=== PATIENT | male | born 1945 | race African-American/Black ===

== ENCOUNTER → 2016-12-23 | Outpatient (CLI) | payer MEDICARE, OTHER ==
[~2016-12-23] MED LIST: ASPIRIN 32325 MG/TAB PO; BACTRIM DS 8001 TAB PO; COZAAR 50MG50 MG/TAB PO; CRESTOR40 MG PO; FARXIGA10 PO; FISH OIL1000 MG PO; GARLIC SUPPLEM300 MG PO; GLUCOPHAGE1000 MG PO; HYDRODIURIL50 MG PO; LOPRESSOR100 MG PO; LYRICA 50MG CAP50 MG PO; MULTIPLE VITAMI1 CAP PO; NATURAL E400 IU PO; NORVASC 10MG10 MG PO; PLAVIX 75MG TAB75 MG PO; PREDNISONE20 MG PO; SYNTHROID 0.10.15 MG PO; VIAGRA100 MG PO; VICTOZA6 MG/ML SC; XARELTO15 MG PO; ZESTRIL40 MG PO; ZYLOPRIM 300MG300 MG PO
== END ==
LOC: COL.RAD 07:14
DX: K80.20 Calculus of gallbladder without cholecystitis without obstruction (principal); M43.16 Spondylolisthesis, lumbar region; I70.0 Atherosclerosis of aorta

== ENCOUNTER 2017-04-29 10:03 | Emergency (ER) | payer MEDICARE, OTHER ==
[~2017-04-29] VITALS: Ht 175.3 cm; Wt 80.9 kg
[2017-04-29 10:10] VITALS: TEMP 97.7
[2017-04-29 10:39] LABS: BASO # 0.1 (0.0-0.2); BASO % 0.7 % (0.0-2.0); EOS # 0.2 (0.0-0.7); EOS % 3.2 % (0-4.0); GRAN # 4.7 (1.4-6.5); GRAN % 69.4 % (42.2-75.2); HEMATOCRIT 37.4 % (42.0-52.0); HEMOGLOBIN 12.4 g/dl (13.5-18.0); LYMPH # 1.5 (1.2-3.4); LYMPH % 21.5 % (20.0-51.0); MEAN CELL VOLUME 96 fl (80.0-100.0); MEAN CORPUSCULAR HEMOGLOBIN 32 pg (27.0-31.0); MEAN CORPUSCULAR HGB CONC 33 g/dl (33.0-37.0); MEAN PLATELET VOLUME 10.8 fl (7.4-10.4); MONO # 0.3 (0.1-0.6); MONO % 4.9 % (1.7-9.3); PLATELET COUNT 198 K/mm3 (130-400); RED BLOOD COUNT 3.89 M/mm3 (4.20-5.60); REDCELL DISTRIBUTION WIDTH-CV 15.2 % (11.5-14.5)
[2017-04-29 10:44] LABS: PROTHROMBIN TIME 11.9 SECONDS (9.7-12.8)
[2017-04-29 10:48] LABS: ALBUMIN 4.1 gm/dL (3.5-5.0); BILIRUBIN,TOTAL 0.9 mg/dL (0.0-1.0); CALCIUM 9.7 mg/dL (8.4-10.2); CREATININE, serum 1.45 mg/dL (0.66-1.25); POTASSIUM 3.9 mmol/L (3.4-5.0); TOTAL PROTEIN 7.7 gm/dL (6.4-8.2)
[2017-04-29 11:00] LABS: TROPONIN-I 0.025 ng/mL (0.000-0.034)
[2017-04-29] MEDS ORDERED: ZYLOPRIM 300MG300 MG PO (11:59)
[2017-04-29] MEDS ORDERED: NORVASC 10MG10 MG PO (11:59)
[2017-04-29] MEDS ORDERED: ASPIRIN 81M81 MG/TA2 PO (12:00)
[2017-04-29] MEDS ORDERED: SYNTHROID 0.10.15 MG PO (12:01)
[2017-04-29] MEDS ORDERED: HYDRODIURIL50 MG PO (12:01)
[2017-04-29] MEDS ORDERED: GLUCOPHAGE XR500 M1 PO (12:02)
[2017-04-29] MEDS ORDERED: LOPRESSOR100 MG PO (12:03)
[2017-04-29] MEDS ORDERED: NATURAL E400 IU PO (12:04)
[2017-04-29] MEDS ORDERED: VIAGRA100 M1 (12:04)
[2017-04-29] MEDS ORDERED: LIPITOR 80MG80 MG PO (12:05)
[2017-04-29] MEDS ORDERED: VICTOZA6 MG/ML SQ (12:07)
[2017-04-29] MEDS ORDERED: OMEGA-3 1000 MG1 CAP PO (12:07)
[2017-04-29] MEDS ORDERED: MULTIPLE VITAMI1 TA5 PO (12:08)
[2017-04-29] MEDS ORDERED: BYDUREON P2 MG/0.65 (12:09)
[2017-04-29 15:54] VITALS: BP 142/94; PULSE 90
== END 2017-04-29 16:23 | disposition short-term general hospital (02) ==
LOC: COL.ER 10:03
PROVIDERS: Emergency Medicine
DX: I50.9 Heart failure, unspecified (principal); E11.9 Type 2 diabetes mellitus without complications; I10 Essential (primary) hypertension; I25.10 Atherosclerotic heart disease of native coronary artery without angina pectoris; Z95.1 Presence of aortocoronary bypass graft; E03.9 Hypothyroidism, unspecified; Z79.82 Long term (current) use of aspirin; Z79.84 Long term (current) use of oral hypoglycemic drugs
CPT/HCPCS: J1644; J1940

== ENCOUNTER → 2017-08-02 | Outpatient (CLI) | payer MEDICARE, OTHER ==
[~2017-08-02] MED LIST changes: +APRESOLINE 25MG25 MG PO; +ASPIRIN 81M81 MG/TA2 PO; +BYDUREON P2 MG/0.65; +GARLIC100 MG PO; +GLUCOPHAGE XR500 M1 PO; +LANTUS100 U/ML SQ; +LIPITOR 80MG80 MG PO; +MULTIPLE VITAMI1 TA5 PO; +NOVOLOG 100U100 U/M1 SQ; +OMEGA-3 1000 MG1 CAP PO; +TOPROL XL200 MG PO; +VIAGRA100 M1; +VICTOZA6 MG/ML SQ; +ZESTRIL 20MG TA20 MG PO
== END ==
LOC: COL.VAS 08:12
DX: I08.3 Combined rheumatic disorders of mitral, aortic and tricuspid valves (principal); I50.9 Heart failure, unspecified

== ENCOUNTER → 2017-09-30 | Outpatient (CLI) | payer MEDICARE, OTHER ==
[~2017-09-30] MED LIST changes: +COREG 25MG25 MG/TAB PO; +LANOXIN 0.120.125 MG PO; +LASIX 40MG TABL40 MG PO
[2017-09-30 12:18] LABS: ALBUMIN 3.6 gm/dL (3.5-5.0); BILIRUBIN,TOTAL 1.1 mg/dL (0.0-1.0); CALCIUM 9.1 mg/dL (8.4-10.2); CREATININE, serum 1.88 mg/dL (0.66-1.25); POTASSIUM 4.4 mmol/L (3.4-5.0); TOTAL PROTEIN 7.2 gm/dL (6.4-8.2)
== END ==
LOC: COL.LAB 11:40
PROVIDERS: Family Medicine
DX: I50.82 Biventricular heart failure (principal)

== ENCOUNTER → 2017-10-26 | Outpatient (CLI) | payer MEDICARE, OTHER | LOC: COL.RAD 07:59 | DX: J43.9 Emphysema, unspecified (principal); J84.9 Interstitial pulmonary disease, unspecified; Z95.1 Presence of aortocoronary bypass graft; Z95.0 Presence of cardiac pacemaker; Z98.890 Other specified postprocedural states ==

== ENCOUNTER 2018-07-24 19:26 | Emergency (ER) | payer MEDICARE, OTHER ==
[~2018-07-24] VITALS: Ht 175.3 cm; Wt 78.2 kg
[2018-07-24 19:30] VITALS: TEMP 97
[2018-07-24 19:52] LABS: BASO % 0.5 % (0.0-2.0); EOS # 0.2 (0.0-0.7); EOS % 2.9 % (0-4.0); GRAN # 4.7 (1.4-6.5); GRAN % 61.9 % (42.2-75.2); HEMATOCRIT 43.1 % (42.0-52.0); LYMPH # 1.8 (1.2-3.4); LYMPH % 23.5 % (20.0-51.0); MEAN CELL VOLUME 94 fl (80.0-100.0); MEAN CORPUSCULAR HEMOGLOBIN 31 pg (27.0-31.0); MEAN CORPUSCULAR HGB CONC 33 g/dl (33.0-37.0); MEAN PLATELET VOLUME 11.1 fl (7.4-10.4); MONO # 0.8 (0.1-0.6); MONO % 10.9 % (1.7-9.3); PLATELET COUNT 159 K/mm3 (130-400); RED BLOOD COUNT 4.58 M/mm3 (4.20-5.60)
[2018-07-24 20:07] LABS: ALBUMIN 3.9 gm/dL (3.5-5.0); BILIRUBIN,TOTAL 0.8 mg/dL (0.0-1.0); C-REACTIVE PROTEIN 0.7 mg/dL (0.0-0.9); CALCIUM 9.4 mg/dL (8.4-10.2); CREATININE, serum 2.73 (0.66-1.25); POTASSIUM 4.8 mmol/L (3.4-5.0); TOTAL PROTEIN 8.1 gm/dL (6.4-8.2)
[2018-07-24 20:20] LABS: TROPONIN-I 0.049 ng/mL (0.000-0.035)
[2018-07-24 22:46] VITALS: BP 146/91; PULSE 82
== END 2018-07-24 22:46 | disposition home or self-care (01) ==
LOC: COL.ER 19:26
PROVIDERS: Emergency Medicine
DX: Z45.010 Encounter for checking and testing of cardiac pacemaker pulse generator [battery] (principal); N18.9 Chronic kidney disease, unspecified; I25.10 Atherosclerotic heart disease of native coronary artery without angina pectoris; I12.9 Hypertensive chronic kidney disease with stage 1 through stage 4 chronic kidney disease, or unspecified chronic kidney disease; E11.22 Type 2 diabetes mellitus with diabetic chronic kidney disease; Z79.82 Long term (current) use of aspirin; Z79.4 Long term (current) use of insulin

== ENCOUNTER → 2018-08-03 | Outpatient (CLI) | payer MEDICARE, OTHER | LOC: COL.RAD 13:50 | DX: I70.0 Atherosclerosis of aorta (principal); R31.0 Gross hematuria ==

== ENCOUNTER 2018-09-11 05:50 | Observation (INO) | payer MEDICARE, OTHER ==
[~2018-09-11] VITALS: Ht 327.7 cm; Wt 71.4 kg
[2018-09-11] MEDS ORDERED: LANOXIN 0.120.125 MG PO (06:28)
[2018-09-11] MEDS ORDERED: POTASSIUM IODID PO (06:31)
[2018-09-11] MEDS ORDERED: ANORO IH (06:32)
[2018-09-11] MEDS ORDERED: NATURAL E400 IU PO (06:33)
[2018-09-11 06:43] LABS: BASO # 0.1 (0.0-0.2); BASO % 0.9 % (0.0-2.0); EOS # 0.4 (0.0-0.7); EOS % 4.6 % (0-4.0); GRAN # 6.1 (1.4-6.5); GRAN % 72.3 % (42.2-75.2); HEMATOCRIT 41.2 % (42.0-52.0); HEMOGLOBIN 13.3 g/dl (13.5-18.0); LYMPH # 1.3 (1.2-3.4); LYMPH % 14.8 % (20.0-51.0); MEAN CELL VOLUME 97 fl (80.0-100.0); MEAN CORPUSCULAR HEMOGLOBIN 31 pg (27.0-31.0); MEAN CORPUSCULAR HGB CONC 32 g/dl (33.0-37.0); MEAN PLATELET VOLUME 11.2 fl (7.4-10.4); MONO # 0.6 (0.1-0.6); PLATELET COUNT 194 K/mm3 (130-400); RED BLOOD COUNT 4.27 M/mm3 (4.20-5.60)
[2018-09-11 06:45] LABS: INR 1.1 (0.8-3.0)
[2018-09-11 07:18] LABS: TROPONIN-I 0.059 ng/mL (0.000-0.035)
[2018-09-11 07:32] LABS: ALBUMIN 3.4 gm/dL (3.5-5.0); BILIRUBIN,TOTAL 0.6 mg/dL (0.0-1.0); CREATININE, serum 1.87 (0.66-1.25); POTASSIUM 4.8 mmol/L (3.4-5.0); TOTAL PROTEIN 7.4 gm/dL (6.4-8.2)
[2018-09-11 12:13] VITALS: BP 139/65; PULSE 66; TEMP 98.7
[2018-09-11 15:22] VITALS: BP 130/73; PULSE 90; TEMP 97.4
[2018-09-12] VITALS (7 sets, daily range): BP systolic 101–131; BP diastolic 56–69; PULSE 78–91; TEMP 97.6–98.4
[2018-09-12 05:59] LABS: BASO # 0.1 (0.0-0.2); BASO % 0.8 % (0.0-2.0); EOS # 0.4 (0.0-0.7); EOS % 5.8 % (0-4.0); GRAN # 5.2 (1.4-6.5); GRAN % 68.7 % (42.2-75.2); HEMATOCRIT 41.9 % (42.0-52.0); HEMOGLOBIN 13.6 g/dl (13.5-18.0); LYMPH # 1.2 (1.2-3.4); MEAN CELL VOLUME 96 fl (80.0-100.0); MEAN CORPUSCULAR HEMOGLOBIN 31 pg (27.0-31.0); MEAN CORPUSCULAR HGB CONC 33 g/dl (33.0-37.0); MEAN PLATELET VOLUME 10.2 fl (7.4-10.4); MONO # 0.6 (0.1-0.6); MONO % 8.2 % (1.7-9.3); PLATELET COUNT 190 K/mm3 (130-400); RED BLOOD COUNT 4.35 M/mm3 (4.20-5.60); REDCELL DISTRIBUTION WIDTH-CV 16.6 % (11.5-14.5)
[2018-09-12 06:07] LABS: CALCIUM 9.1 mg/dL (8.4-10.2); CHOLESTEROL RISK RATIO 4.3; CREATININE, serum 1.88 (0.66-1.25); MAGNESIUM 1.8 mg/dL (1.6-2.3); POTASSIUM 4.4 mmol/L (3.4-5.0)
[2018-09-12 06:26] LABS: TROPONIN-I 0.056 ng/mL (0.000-0.035)
[2018-09-13] VITALS (10 sets, daily range): BP systolic 92–123; BP diastolic 54–71; PULSE 81–90; TEMP 97.5–98.2
[2018-09-13 06:05] LABS: BASO # 0.1 (0.0-0.2); BASO % 0.9 % (0.0-2.0); EOS # 0.5 (0.0-0.7); EOS % 6.4 % (0-4.0); GRAN # 4.6 (1.4-6.5); GRAN % 65.3 % (42.2-75.2); HEMATOCRIT 42.3 % (42.0-52.0); LYMPH # 1.1 (1.2-3.4); LYMPH % 15.5 % (20.0-51.0); MEAN CELL VOLUME 94 fl (80.0-100.0); MEAN CORPUSCULAR HEMOGLOBIN 31 pg (27.0-31.0); MEAN CORPUSCULAR HGB CONC 33 g/dl (33.0-37.0); MEAN PLATELET VOLUME 11.8 fl (7.4-10.4); MONO # 0.8 (0.1-0.6); MONO % 11.5 % (1.7-9.3); PLATELET COUNT 195 K/mm3 (130-400); RED BLOOD COUNT 4.48 M/mm3 (4.20-5.60); REDCELL DISTRIBUTION WIDTH-CV 16.2 % (11.5-14.5)
[2018-09-13 06:20] LABS: CALCIUM 9.2 mg/dL (8.4-10.2); CREATININE, serum 2.19 (0.66-1.25); POTASSIUM 4.4 mmol/L (3.4-5.0)
[2018-09-13] MEDS ORDERED: COREG 25MG25 MG/TAB PO (13:35)
[2018-09-13] MEDS ORDERED: TESSALON P100 MG/CAP PO (13:36)
[2018-09-13] MEDS ORDERED: ENTRESTO 24 MG1 EACH PO (13:36)
[2018-09-13] MEDS ORDERED: LASIX 20MG TABL20 MG PO (13:36)
== END 2018-09-13 18:03 | disposition home or self-care (01) ==
LOC: COL.ER 05:50 → MEDICAL 08:50
PROVIDERS: Emergency Medicine; Physician Assistant; ADMIT Hospitalist
DX: I13.0 Hypertensive heart and chronic kidney disease with heart failure and stage 1 through stage 4 chronic kidney disease, or unspecified chronic kidney disease (principal); E11.22 Type 2 diabetes mellitus with diabetic chronic kidney disease; I50.20 Unspecified systolic (congestive) heart failure; I25.10 Atherosclerotic heart disease of native coronary artery without angina pectoris; E78.5 Hyperlipidemia, unspecified; E03.9 Hypothyroidism, unspecified; E11.9 Type 2 diabetes mellitus without complications; M10.9 Gout, unspecified; R05 Cough; N18.3 Chronic kidney disease, stage 3 (moderate); G47.33 Obstructive sleep apnea (adult) (pediatric); J96.11 Chronic respiratory failure with hypoxia; Z79.82 Long term (current) use of aspirin; Z79.4 Long term (current) use of insulin; I25.2 Old myocardial infarction; Z95.0 Presence of cardiac pacemaker; Z95.1 Presence of aortocoronary bypass graft; Z87.891 Personal history of nicotine dependence; Z88.8 Allergy status to other drugs, medicaments and biological substances; I07.1 Rheumatic tricuspid insufficiency
CPT/HCPCS: 99233-AI; A9500; G0378; J1644; J1815; J1940; J2270

== ENCOUNTER → 2018-10-06 | Outpatient (CLI) | payer MEDICARE, OTHER ==
[~2018-10-06] MED LIST changes: +ANORO IH; +ENTRESTO 24 MG1 EACH PO; +LASIX 20MG TABL20 MG PO; +POTASSIUM IODID PO; +TESSALON P100 MG/CAP PO
[2018-10-06 15:46] LABS: ALBUMIN 3.8 gm/dL (3.5-5.0); BILIRUBIN,TOTAL 1.3 mg/dL (0.0-1.0); CALCIUM 9.4 mg/dL (8.4-10.2); CREATININE, serum 1.87 (0.66-1.25); POTASSIUM 4.9 mmol/L (3.4-5.0)
[2018-10-06 23:35] LABS: PROCALCITONIN 0.1 ng/mL (0.00-0.09)
== END ==
LOC: COL.LAB 14:37
PROVIDERS: Family Medicine
DX: I27.20 Pulmonary hypertension, unspecified (principal); I50.82 Biventricular heart failure

== ENCOUNTER → 2018-11-24 | Outpatient (CLI) | payer MEDICARE, OTHER ==
[~2018-11-24] MED LIST changes: +ALBUTEROL0.83 MG/ML IH; +BUMEX2 MG PO; +MAG-OX 400400 MG/TAB PO; +ZAROXOLYN 2.52.5 MG PO; +ZESTRIL 10MG10 MG PO
== END ==
LOC: COL.PUL 09:56
DX: R06.02 Shortness of breath (principal)
CPT/HCPCS: J7674

== ENCOUNTER 2018-11-30 11:16 | Inpatient (IN) | payer MEDICARE, OTHER ==
[~2018-11-30] VITALS: Ht 175.3 cm; Wt 75.8 kg
[2018-11-30] MEDS ORDERED: BUMEX2 MG PO (11:47)
[2018-11-30] MEDS ORDERED: COREG 6.256.25 MG/TA PO (11:48)
[2018-11-30] MEDS ORDERED: COZAAR 25MG25 MG/TAB PO (11:48)
[2018-11-30] MEDS ORDERED: DYMISTA1 SPR NS (11:49)
[2018-11-30] MEDS ORDERED: TUSS PO (11:49)
[2018-11-30] MEDS ORDERED: NITROSTAT0.4 MG/TAB SL (11:49)
[2018-11-30 11:53] LABS: BASO # 0.1 (0.0-0.2); BASO % 0.6 % (0.0-2.0); EOS # 1.1 (0.0-0.7); EOS % 13.1 % (0-4.0); GRAN # 5.6 (1.4-6.5); GRAN % 64.6 % (42.2-75.2); HEMATOCRIT 42.7 % (42.0-52.0); HEMOGLOBIN 13.9 g/dl (13.5-18.0); LYMPH # 1.3 (1.2-3.4); LYMPH % 14.6 % (20.0-51.0); MEAN CELL VOLUME 95 fl (80.0-100.0); MEAN CORPUSCULAR HEMOGLOBIN 31 pg (27.0-31.0); MEAN CORPUSCULAR HGB CONC 33 g/dl (33.0-37.0); MONO # 0.6 (0.1-0.6); MONO % 6.8 % (1.7-9.3); PLATELET COUNT 174 K/mm3 (130-400); RED BLOOD COUNT 4.52 M/mm3 (4.20-5.60); REDCELL DISTRIBUTION WIDTH-CV 16.3 % (11.5-14.5)
[2018-11-30 12:00] LABS: C-REACTIVE PROTEIN 1.6 mg/dL (0.0-0.9); CALCIUM 9.6 mg/dL (8.4-10.2); CREATININE, serum 1.46 (0.66-1.25); POTASSIUM 4.5 mmol/L (3.4-5.0); TOTAL PROTEIN 8.2 gm/dL (6.4-8.2)
[2018-11-30 12:15] LABS: TROPONIN-I 0.064 ng/mL (0.000-0.035)
[2018-11-30 13:15] LABS: COLLECTION METHOD CLEAN CATCH
[2018-11-30 13:28] LABS: PH 6 (5-8); SQUAMOUS EPITHELIAL None Seen /hpf; URINE APPEARANCE Clear; URINE BACTERIA None Seen /hpf; URINE BILIRUBIN Negative (NEGATIVE); URINE BLOOD Negative (NEGATIVE); URINE COLOR Yellow; URINE GLUCOSE 3+ (NEGATIVE); URINE KETONE Negative (NEGATIVE); URINE LEUKOCYTE ESTERASE 1+ (NEGATIVE); URINE NITRATE Negative (NEGATIVE); URINE PROTEIN(semi-quant) 2+ (NEGATIVE); URINE RBC 0-2 /hpf; URINE UROBILINOGEN Negative (NEGATIVE)
[2018-11-30 15:59] VITALS: BP 152/69; PULSE 93; TEMP 97.3
--- NOTE | 2018-11-30 17:45 | NUR ---
Pt arrived to room 307 at this time. He is A/O x3. His breathing is currently even and unlabored on 4L O2 via NC. Pt reports occasional SOB and cough. Pt denies any pain, no chest pain present. IV abx infusing into RFA without complications. POC discussed with patient who verbalizes understanding. No needs at this time. Call light within reach.
[2018-11-30 20:01] VITALS: BP 144/81; PULSE 94; TEMP 97.4
--- NOTE | 2018-11-30 20:30 | NUR ---
Patient had 25 units Levemir ordered. When going to administer medication, patient refused, stating that the [facility] was very specefic on only taking 15 units, as they are trying to get the [facility] to cover another insulin medication. After talking with patient, patient adament he will only take 15 units. Given 15 units as patient would allow.
--- NOTE | 2018-11-30 20:30 | NUR ---
Patient assessed at this time. Alert and oriented x 4, and able to make needs known. Denies having pain and discomfort. Peripheral IV to right forearm flushed. Site is without redness, warmth, swelling, and pain. Complaints of SOB and dyspnea with exertion. On oxygen at 4 L/min via NC. Respirations even and unlabored. Frequent cough noted, but unable to produce sputum. LS inspiratory and expiratory wheezes throughout. HRR. Telemetry monitoring in place. BSAx4. Abdomen soft and non-tender. No edema. Resting in bed visiting with neighbor at this time. Denies having any questions, needs, or concerns. Call light is within reach.
[2018-11-30 23:24] VITALS: BP 135/68; PULSE 96; TEMP 97.5
[2018-12-01 03:46] VITALS: BP 140/74; PULSE 104; TEMP 98.1
--- NOTE | 2018-12-01 04:27 | NUR ---
Patient has denied having pain and discomfort this shift. Voices no questions, needs, or concerns. During VS check, patient's oxygen level was 89% on 2 L/min via NC. Increased oxygen to 3 L/min via NC. SPO2 increased to 93%. Voices no questions, needs, or concerns at this time. Resting in bed with call light within reach.
[2018-12-01 08:55] VITALS: BP 158/81; BP 1583/81; PULSE 101; TEMP 97.5
--- NOTE | 2018-12-01 10:20 | NUR ---
Initial visit; Patient thanked [facility] Supervisor for looking in on him and offering God's blessings.
--- NOTE | 2018-12-01 11:18 | NUR ---
RANDEE met with the patient to discuss discharge plan. The patient lives alone in [place]. He states he is thinking about moving to [place] soon to be around his grandchildren. He reports independence with ADLs and does not use any assistive devices. He does have home oxygen from [employer]. The patient's PCP is Dr. Joycelyn Munoz and he receives his medications at [facility]. He reports no difficulties obtaining his meds. The patient does not have advanced directives, but he states that he is working on getting them completed. He states that he plans to designate his only son, Bhavesh Vilchis (ph#[phone]) and his neighbor/friend, Danette Davis (ph#[phone]). The patient plans to return back home upon discharge. No additional needs at this time.
[2018-12-01 12:36] VITALS: BP 128/67; PULSE 91; TEMP 97.6
[2018-12-01 16:33] VITALS: BP 148/83; PULSE 97; TEMP 97.7
--- NOTE | 2018-12-01 18:32 | NUR ---
Initial: pt laying in bed, initial assessment complete, exp. wheezes heard in all lobes. Pt complained of chest tightness when breathing, contacted RT and they came immediately for a breathing treatment. Vitals WNL, BGLs being monitored. Call light and personal belongings placed within reach.
[2018-12-01 19:42] VITALS: BP 138/72; PULSE 95; TEMP 97.5
[2018-12-01 23:35] VITALS: BP 122/71; PULSE 87; TEMP 97.7
[2018-12-02 03:41] VITALS: BP 122/70; PULSE 87; TEMP 97.5
[2018-12-02 08:15] VITALS: BP 127/81; PULSE 98; TEMP 98.6
--- NOTE | 2018-12-02 09:03 | NUR ---
Pt assessment completed and charted. Pt has student nurse Zoë taking care of him this morning. Medications administered per MAR by student nurse with instructor. Pt denies chest pain, dizziness, N/V/D. Per pt he has some LUQ discomfort from coughing. Dr. Munoz aware and has seen patient. Pt on 2L NC. INT RFA IV flushes with no complications. No other concerns voiced at this time. Call light within reach.
[2018-12-02 10:10] LABS: ALBUMIN 3.4 gm/dL (3.5-5.0); BILIRUBIN,TOTAL 0.6 mg/dL (0.0-1.0); CALCIUM 8.5 mg/dL (8.4-10.2); CREATININE, serum 2.19 (0.66-1.25); POTASSIUM 4.3 mmol/L (3.4-5.0); TOTAL PROTEIN 7.2 gm/dL (6.4-8.2)
--- NOTE | 2018-12-02 10:16 | NUR ---
Reported on to primary nurse Mariia FREED, So Perez, RN Student
[2018-12-02 12:00] VITALS: BP 118/59; PULSE 83; TEMP 97.3
--- NOTE | 2018-12-02 12:14 | NUR ---
Pt VSS obtained. Pt satting at 85% on 2L NC. Bumped up to 3L NC, currently satting at 94%. Denies pain. No other concerns.
[2018-12-02 12:49] VITALS: BP 166/90; PULSE 90; TEMP 98.8
--- NOTE | 2018-12-02 13:43 | NUR ---
Primary nurse was assisted with [id number] [facility] [employer] [facility] student So Perez and [employer] instructor Laury Craven RN-.
--- NOTE | 2018-12-02 13:52 | NUR ---
Patient resting in room talking with a vistor. Reported off to nurse ABDIAZIZ Chiang
[2018-12-02 16:11] VITALS: BP 131/74; PULSE 96; TEMP 97.4
--- NOTE | 2018-12-02 18:37 | NUR ---
Pt has had uneventful day. Student nurse cared for pt this morning. Pt requiring 3L NC to keep sats above 90%. No other concerns voiced.
[2018-12-02 19:18] VITALS: BP 138/75; PULSE 99; TEMP 97.6
[2018-12-03 00:14] VITALS: BP 136/78; PULSE 90; TEMP 97.7
[2018-12-03 04:38] VITALS: BP 127/72; PULSE 90; TEMP 97.6
[2018-12-03 07:52] VITALS: BP 142/80; PULSE 93; TEMP 97.6
--- NOTE | 2018-12-03 08:44 | NUR ---
Pt assessment completed and charted. Morning medications administered per MAY. BS checked, 210 this AM. 4 units Novolg adminsitered. Pt sitting at EOB eating breakfast. Pt denies chest pain, dizziness, SOB, N/V/D. Pt on 3L NC. RFA INT IV flushes with no complications. Pt has no concerns at this time. Call light within reach.
[2018-12-03 11:37] VITALS: BP 135/76; PULSE 96; TEMP 97.7
[2018-12-03 16:40] VITALS: BP 123/72; PULSE 92; TEMP 97.2
--- NOTE | 2018-12-03 17:24 | NUR ---
Pt has had uneventful day. Denies any complaints. Pt does have dry cough, PRN medication administered per MAR. Pt remains on 3L NC. RFA IV patent with no complications. Sliding Novolog administered as needed per MAR. No other concerns voiced at this time.
[2018-12-03 20:41] VITALS: BP 142/81; PULSE 94; TEMP 97.5
--- NOTE | 2018-12-03 21:10 | NUR ---
Report received from ABDIAZIZ Chiang. Patient resting in bed. Denies pain at this time. IV patent, flushed. Lungs CTA. Tele called and reported patient had one 5 run of v tach. Upon assessment of patient, patient denied chest pain and stated he felt good. Bowels active. Denies any further needs at this time. Call light within reach.
[2018-12-04 00:04] VITALS: BP 121/75; PULSE 93; TEMP 98.1
--- NOTE | 2018-12-04 05:30 | NUR ---
Patient had uneventful night. Resting in bed. Denied having any pain throughout shift. No further needs at this time. Call light within reach.
[2018-12-04 05:31] VITALS: BP 129/74; PULSE 89; TEMP 97.5
--- NOTE | 2018-12-04 06:52 | NUR ---
Report given to ABDIAZIZ Cline
[2018-12-04 07:13] VITALS: BP 132/81; PULSE 86; TEMP 97.5
[2018-12-04 07:14] LABS: ALBUMIN 3.5 gm/dL (3.5-5.0); BILIRUBIN,TOTAL 0.6 mg/dL (0.0-1.0); CALCIUM 9.2 mg/dL (8.4-10.2); CREATININE, serum 1.96 (0.66-1.25); POTASSIUM 4.5 mmol/L (3.4-5.0); TOTAL PROTEIN 7.3 gm/dL (6.4-8.2)
--- NOTE | 2018-12-04 07:55 | NUR ---
PATIENT ASSESSMENT COMPLETED. HE DENIES ANY NEEDS AT THIS TIME. BREAKFAST HAS ARRIVED. O2 IS AT 2L VIA NC.
[2018-12-04 12:04] VITALS: BP 146/84; PULSE 91; TEMP 97.8
[2018-12-04 16:40] VITALS: BP 134/75; PULSE 93; TEMP 97.3
--- NOTE | 2018-12-04 18:59 | NUR ---
PATIENT FINISHES SUPPER. HE REPORTS THAT HIS APPETITE IS BACK. HE HAS A FRIEND VISITING WITH HIM. HE IS VERY TALKATIVE AND LAUGHING. REPORTS COUGH IS BETTER ALSO. HE ATE 100% OF HIS SUPPER.
[2018-12-04 19:42] VITALS: BP 129/52; PULSE 94; TEMP 97.3
[2018-12-05] VITALS (8 sets, daily range): BP systolic 117–166; BP diastolic 55–85; PULSE 70–94; TEMP 97.3–100.7
--- NOTE | 2018-12-05 07:30 | NUR ---
Initial; Pt laying in bed. No complaints of pain or discomfort. No SOB. Assessment complete.
--- NOTE | 2018-12-05 08:19 | NUR ---
Initial: pt laying in bed, notified of BGL at 61, Aide gave pt [place] [employer]ice, reassessed BGL 20 minutes later and BGL had risen to 107. Pt. comfortable, no complaints of pain or discomfort. Call light within reach.
--- NOTE | 2018-12-05 09:07 | NUR ---
RANDEE met with the patient to review discharge plan and to follow up after the weekend. The patient reports that he is doing fine. He states he is ready to get back home. The patient had no questions or concerns. No additional needs at this time.
--- NOTE | 2018-12-05 10:55 | NUR ---
First visit from the director trade. No needs right now.
--- NOTE | 2018-12-05 17:45 | NUR ---
Pt desatting 89%, titrated O2 up to 4L, pt o2 still maintained 89% spo2. Pt. got up to use the restroom, and became SOB. He stated he felt as though his chest was too tight. Called RT for a treatment. Dr. Munoz has D/C'd his PRN breathing treatment. Contacted Dr. Munoz for a PRN, read back Albuterol Neb Solution 2.5 Q1H PRN for dyspnea. He also put an order for a Barium Swallow at 0800. Read back, and orders put in. Pt saturation came back up to 93%. No other concerns at this time.
--- NOTE | 2018-12-05 18:45 | NUR ---
Initial; Pt laying in bed. No complaints of pain or discomfort. No SOB. Assessment complete.
--- NOTE | 2018-12-05 20:00 | NUR ---
Report received from ABDIAZIZ Collier. Patient resting in bed. Assessment complete. Patient denies any pain at this time. Lung sounds diminished on right side. Patient aware that he can have breathing treatments Q1h as needed. Was asking questions about why he is having such a hard time breathing and what the doctor is doing to address the issue. Informed he will be having a barium swallow in the morning and patient seemed more at ease. No further needs at this time. Call light within reach.
--- NOTE | 2018-12-05 22:30 | NUR ---
Dr Munoz called and requested an update on the patient. Informed that he was not having as much difficulty with breathing at this time. Informed dr about patients blood sugar of 282. was not concerned as levemir was just given. Requested time of barium swallow test in morning. When asked about tele parameters, this nurse was instructed to take patient off tele as was d/c'd. expressed no other concerns.
[2018-12-06 03:41] VITALS: BP 108/82; PULSE 83; TEMP 97.8
--- NOTE | 2018-12-06 05:29 | NUR ---
Patient had uneventful night. Denied having pain. Did not need any additional breathing treatments. Resting in bed. No further needs at this time. Call light within reach.
--- NOTE | 2018-12-06 06:49 | NUR ---
Report given to ABDIAZIZ Graham
--- NOTE | 2018-12-06 06:55 | NUR ---
Report given to ABDIAZIZ Collier
--- NOTE | 2018-12-06 07:30 | NUR ---
Pt went to radiology for barium swallow. Pt transferred in wheelchair with 4L o2.
--- NOTE | 2018-12-06 08:00 | NUR ---
INITIAL; PT LAYING IN BED, NO COMPLAINT OF PAIN OR SOB. ASSESSMENT COMPLETE. Pt resting in bed with call light and phone within reach.
[2018-12-06 08:39] VITALS: BP 127/76; PULSE 95; TEMP 97.5
--- NOTE | 2018-12-06 10:07 | NUR ---
INITIAL; PT LAYING IN BED, NO COMPLAINT OF PAIN OR SOB. ASSESSMENT COMPLETE. Pt resting in bed with call light and phone within reach.
[2018-12-06 11:22] VITALS: BP 132/84; PULSE 98; TEMP 98.3
[2018-12-06 14:55] VITALS: BP 120/66; PULSE 92; TEMP 97.9
--- NOTE | 2018-12-06 18:58 | NUR ---
Dr. Munoz called to get an update on pt. Notified him of negative CXR results. He ordered another 20mg Prednisone dose for now. ST came to discuss techniques for the acid reflux. Pt was understanding of all information. Dr. Munoz will come in the morning. Report given to Tara, she is aware of the added prednisone dose for this evening. No other concerns at this time.
[2018-12-06 20:00] VITALS: BP 125/72; PULSE 91; TEMP 97.6
--- NOTE | 2018-12-06 21:30 | NUR ---
Report received from ABDIAZIZ Collier. Patient resting in bed. Assessment complete. Denies pain at this time. Bowels active. Lungs clear on left side, diminished on right side. IV patent. Denies further needs at this time. Call light within reach.
--- NOTE | 2018-12-06 22:30 | NUR ---
During blood sugar checks, aid calls this nurse and states that the patients blood sugar was 421. Nurse notified Dr. Munoz about the reading and he instructed this nurse to follow protocol for blood sugars over 400. 12 units of Novolog given along with Levemir 35 units. Will continue to monitor.
[2018-12-06 23:25] VITALS: BP 123/58; PULSE 83; TEMP 97.5
[2018-12-07 04:00] VITALS: BP 112/70; PULSE 76; TEMP 98.1
--- NOTE | 2018-12-07 05:53 | NUR ---
Patient had uneventful night. Blood sugar of 421 noted. PRN novolog given along with levemir, patient showed minimal improvement. Denied pain throughout shift. Call light within reach.
--- NOTE | 2018-12-07 06:51 | NUR ---
Report given to ABDIAZIZ Collier and ABDIAZIZ Mcgarry
[2018-12-07 07:27] VITALS: BP 139/75; PULSE 89; TEMP 98.3
--- NOTE | 2018-12-07 09:10 | NUR ---
Initial; assessment complete. Pt has no complaint of pain or discomfort. Talked with pt about POC for the remainder of his stay and his concern about still being on 4L o2. He will wait for Dr. Munoz to discuss his outpatient POC. Pt is laying in his bed, with his call light and personal belongings within reach. No other concerns at this time.
[2018-12-07 11:26] VITALS: BP 127/72; PULSE 77; TEMP 97.4
[2018-12-07 16:25] VITALS: BP 128/66; PULSE 74; TEMP 98.3
--- NOTE | 2018-12-07 18:06 | NUR ---
PT RESTING IN BED. NO CONCERNS. NOTIFIED PT OF UPCOMING PROCEDURES. PT IS UNDERSTANDING, AND WAS GIVEN HANDOUTS REGARDING EACH PROCEDURE.
[2018-12-07 19:57] VITALS: BP 132/71; PULSE 88; TEMP 97.4
--- NOTE | 2018-12-07 22:18 | NUR ---
Report received from ABDIAZIZ Collier. Patient resting in bed. Assessment complete. Lung sounds diminished on right side. Denies pain at this time. Bowels active. Vitals within normal limits. Blood sugar was 180. Inquired about why his oxygen was turned up to 5L. I called RT and was told that he needs to stay above 90% and was in the 80s earlier in the day. Upon recheck by the aide, it was 85. Patient understands now as to why the change was made. No further needs at this time. Call light within reach.
[2018-12-07 23:35] VITALS: BP 124/67; PULSE 77; TEMP 97.7
--- NOTE | 2018-12-08 03:28 | NUR ---
RT up to patients room to assess oxygen sat. Is holding steady around 94 on 2L O2 at this time.
[2018-12-08 03:43] VITALS: BP 115/64; PULSE 84; TEMP 98.1
--- NOTE | 2018-12-08 05:47 | NUR ---
Patient had uneventful night. Resting in bed. Blood sugars within normal limits. Oxygen sat holding steady on 2L. Denied pain throughout night. No further needs at this time. Call light within reach.
[2018-12-08 06:43] LABS: BASO % 0.1 % (0.0-2.0); EOS % 0.3 % (0-4.0); GRAN # 11.6 (1.4-6.5); GRAN % 78.5 % (42.2-75.2); HEMOGLOBIN 14.9 g/dl (13.5-18.0); LYMPH # 1.9 (1.2-3.4); LYMPH % 12.8 % (20.0-51.0); MEAN CELL VOLUME 90 fl (80.0-100.0); MEAN CORPUSCULAR HEMOGLOBIN 30 pg (27.0-31.0); MEAN CORPUSCULAR HGB CONC 34 g/dl (33.0-37.0); MEAN PLATELET VOLUME 11.6 fl (7.4-10.4); MONO # 1.1 (0.1-0.6); MONO % 7.3 % (1.7-9.3); PLATELET COUNT 221 K/mm3 (130-400); RED BLOOD COUNT 4.91 M/mm3 (4.20-5.60); REDCELL DISTRIBUTION WIDTH-CV 15.8 % (11.5-14.5)
[2018-12-08 06:58] LABS: ACETONE,SERUM NEGATIVE; ALANINE AMINOTRANSFERASE 13 U/L (21-72); ALBUMIN 3.5 gm/dL (3.5-5.0); ALKALINE PHOSPHATASE 121 U/L (50-136); ANION GAP 9 mmol/L (7-16); AST,SGOT 27 U/L (15-37); BLOOD UREA NITROGEN 73 mg/dL (9-20); C-REACTIVE PROTEIN 1.4 mg/dL (0.0-0.9); CALCIUM 9.2 mg/dL (8.4-10.2); CARBON DIOXIDE 28 mmol/L (22-30); CHLORIDE 99 mmol/L (98-107); CREATININE, serum 2.31 (0.66-1.25); GLUCOSE 91 mg/dL (74-106); POTASSIUM 3.9 mmol/L (3.4-5.0); SODIUM 135 mmol/L (137-145); TOTAL PROTEIN 7.2 gm/dL (6.4-8.2)
[2018-12-08 08:40] VITALS: BP 139/72; PULSE 88; TEMP 97.6
[2018-12-08 11:29] VITALS: BP 131/71; PULSE 84; TEMP 97
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
--- NOTE | 2018-12-08 12:49 | NUR ---
The patient is to discharge back home today, 12/08. RANDEE met with the patient to review discharge plan. The patient plans to return back home and was not interested in any home health services at this time. He states he may be interested in them in the future, if he does not progress. RANDEE presented and explained the IM form to the patient. The patient verbalized understanding, signed, and he was provided a copy. No additional needs at this time.
--- NOTE | 2018-12-08 13:48 | NUR ---
Primary nurse was assisted with [phone] patient care by [employer] student Shanna Pedraza and [facility] instructor Laury Craven RN-BC.
[2018-12-08 14:56] LABS: PROCALCITONIN 0.1 ng/mL (0.00-0.09)
== END 2018-12-08 12:20 | disposition home or self-care (01) | DRG 291 ==
LOC: COL.ER 11:16 → MEDICAL 15:09
PROVIDERS: Emergency Medicine; Internal Medicine Pulmonary Disease; ADMIT Family Medicine
DX: I13.0 Hypertensive heart and chronic kidney disease with heart failure and stage 1 through stage 4 chronic kidney disease, or unspecified chronic kidney disease (principal); I50.41 Acute combined systolic (congestive) and diastolic (congestive) heart failure; J69.0 Pneumonitis due to inhalation of food and vomit; K22.8 Other specified diseases of esophagus; K21.9 Gastro-esophageal reflux disease without esophagitis; N18.9 Chronic kidney disease, unspecified; I48.91 Unspecified atrial fibrillation; Z95.810 Presence of automatic (implantable) cardiac defibrillator; E11.22 Type 2 diabetes mellitus with diabetic chronic kidney disease; E11.65 Type 2 diabetes mellitus with hyperglycemia; Z79.4 Long term (current) use of insulin; Z87.891 Personal history of nicotine dependence; Z88.8 Allergy status to other drugs, medicaments and biological substances
CPT/HCPCS: A9540; A9567; J1815; J1940; J1956; J2930; J7512

== ENCOUNTER 2018-12-27 09:17 | Emergency (ER) | payer MEDICARE, OTHER ==
[~2018-12-27] VITALS: Ht 175.3 cm; Wt 78.2 kg
[~2018-12-27 09:17] MED LIST changes: +COREG 6.256.25 MG/TA PO; +COZAAR 25MG25 MG/TAB PO; +DYMISTA1 SPR NS; +NITROSTAT0.4 MG/TAB SL; +TUSS PO
[2018-12-27 09:21] VITALS: TEMP 98.1
[2018-12-27 09:39] LABS: BASO % 0.4 % (0.0-2.0); EOS # 1.2 (0.0-0.7); EOS % 15.7 % (0-4.0); GRAN # 4.9 (1.4-6.5); GRAN % 62.9 % (42.2-75.2); HEMATOCRIT 39.4 % (42.0-52.0); HEMOGLOBIN 12.9 g/dl (13.5-18.0); LYMPH # 1.1 (1.2-3.4); LYMPH % 14.5 % (20.0-51.0); MEAN CELL VOLUME 94 fl (80.0-100.0); MEAN CORPUSCULAR HEMOGLOBIN 31 pg (27.0-31.0); MEAN CORPUSCULAR HGB CONC 33 g/dl (33.0-37.0); MEAN PLATELET VOLUME 12.3 fl (7.4-10.4); MONO # 0.5 (0.1-0.6); PLATELET COUNT 156 K/mm3 (130-400); RED BLOOD COUNT 4.21 M/mm3 (4.20-5.60); REDCELL DISTRIBUTION WIDTH-CV 17.4 % (11.5-14.5)
[2018-12-27] MEDS ORDERED: LIPITOR 80MG80 MG PO (09:45)
[2018-12-27] MEDS ORDERED: IPRATROPIUM BROM3 M1 IH ×2 (09:48→13:25)
[2018-12-27] MEDS ORDERED: BUMEX2 MG PO (09:49)
[2018-12-27 09:56] LABS: ALBUMIN 3.8 gm/dL (3.5-5.0); BILIRUBIN,TOTAL 0.6 mg/dL (0.0-1.0); CREATININE, serum 1.84 (0.66-1.25); POTASSIUM 4.8 mmol/L (3.4-5.0); TOTAL PROTEIN 7.6 gm/dL (6.4-8.2)
[2018-12-27 10:09] LABS: TROPONIN-I 0.071 ng/mL (0.000-0.035)
[2018-12-27] MEDS ORDERED: OMNICEF 300MG300 MG PO (12:04)
[2018-12-27] MEDS ORDERED: FLAGYL500 MG PO (12:04)
[2018-12-27] MEDS ORDERED: TUSS PO (12:39)
[2018-12-27 13:30] VITALS: BP 140/95; PULSE 106
== END 2018-12-27 13:45 | disposition home or self-care (01) ==
LOC: COL.ER 09:17
PROVIDERS: Emergency Medicine
DX: R05 Cough (principal); R09.81 Nasal congestion; I10 Essential (primary) hypertension; E11.9 Type 2 diabetes mellitus without complications; I25.10 Atherosclerotic heart disease of native coronary artery without angina pectoris; I50.9 Heart failure, unspecified; E78.5 Hyperlipidemia, unspecified; Z79.82 Long term (current) use of aspirin; Z79.4 Long term (current) use of insulin
CPT/HCPCS: A4216; J0696; J2930; J7040

== ENCOUNTER 2018-12-30 10:19 | Inpatient (IN) | payer MEDICARE, OTHER ==
[~2018-12-30] VITALS: Ht 175.3 cm; Wt 79.3 kg
[~2018-12-30 10:19] MED LIST changes: +FLAGYL500 MG PO; +IPRATROPIUM BROM3 M1 IH; +OMNICEF 300MG300 MG PO
[2018-12-30 11:14] LABS: BASO % 0.7 % (0.0-2.0); EOS # 0.3 (0.0-0.7); GRAN # 4.7 (1.4-6.5); GRAN % 78.7 % (42.2-75.2); HEMATOCRIT 42.8 % (42.0-52.0); HEMOGLOBIN 13.9 g/dl (13.5-18.0); LYMPH # 0.5 (1.2-3.4); LYMPH % 8.8 % (20.0-51.0); MEAN CELL VOLUME 93 fl (80.0-100.0); MEAN CORPUSCULAR HEMOGLOBIN 30 pg (27.0-31.0); MEAN CORPUSCULAR HGB CONC 33 g/dl (33.0-37.0); MEAN PLATELET VOLUME 11.5 fl (7.4-10.4); MONO # 0.4 (0.1-0.6); MONO % 6.3 % (1.7-9.3); PLATELET COUNT 181 K/mm3 (130-400); RED BLOOD COUNT 4.59 M/mm3 (4.20-5.60); REDCELL DISTRIBUTION WIDTH-CV 18.2 % (11.5-14.5)
[2018-12-30 11:26] LABS: BILIRUBIN,TOTAL 0.8 mg/dL (0.0-1.0); CALCIUM 9.7 mg/dL (8.4-10.2); CREATININE, serum 1.88 (0.66-1.25); POTASSIUM 4.5 mmol/L (3.4-5.0); TOTAL PROTEIN 8.1 gm/dL (6.4-8.2)
[2018-12-30] MEDS ORDERED: PREDNISONE20 MG PO (11:39)
[2018-12-30] MEDS ORDERED: PRILOSEC 20MG20 MG PO (11:40)
[2018-12-30 12:12] VITALS: BP 126/67; PULSE 85
[2018-12-30 15:22] VITALS: BP 126/69; PULSE 77
--- NOTE | 2018-12-30 19:12 | NUR ---
PT HAS BEEN ON THE BIPAP THIS AFTERNOON. SATS REMAINED 94-95% WHILE WEARING IT. PLACED PT BACK ON NC AT THIS TIME SO PT COULD HAVE A BREAK AND MAKE A PHONE CALL, PT STATED HE WAS PLEASED HE COULD HAVE A BREAK, STATED HE THOUGHT HE HAD TO WEAR IT ALL THE TIME. INFORMED HIM NO HE WAS OK TO HAVE IT OFF FOR A LITTLE WHILE AND THAT WE WOULD KEEP AN EYE ON IT. I INFORMED RT ABOUT AND STATED THAT WAS FINE THAT WE WOULD CHECK ON HIM, SATS 92% AT THIS TIME VIA NC.
--- NOTE | 2018-12-30 20:35 | NUR ---
Sitting up in bed. Requests additional pillow and blanket, provided. Denies pain. Not on Bipap at this time. O2 at 5L/NC. Patient explains that he has productive cough of brown thick sputum. Explains at this time he is doing better than he previously had been doing. Denies further needs at this time.
[2018-12-30 20:37] VITALS: BP 122/71; PULSE 82; TEMP 98
--- NOTE | 2018-12-30 22:42 | NUR ---
Lying in bed with eyes closed, HOB elevated 45 degrees. Respirations shallower. No signs or symptoms of air hunger or distress. Bipap on, patient tolerating without difficulty.
[2018-12-30 23:17] VITALS: BP 106/62; PULSE 74; TEMP 97.7
--- NOTE | 2018-12-31 00:04 | NUR ---
Lying in bed with eyes closed. HOB elevated [address] No signs or symptoms of discomfort noted.
--- NOTE | 2018-12-31 01:51 | NUR ---
Lying in bed with eyes closed. Bipap in place. No signs or symptoms of discomfort or distress noted.
--- NOTE | 2018-12-31 02:51 | NUR ---
Lying in bed with eyes closed. HOB elevated 45 degrees. Bipap machine still in place. Patient opens eyes when name called out. Antibiotics hung as ordered. Patient denies any complaints or concerns at this time.
--- NOTE | 2018-12-31 04:08 | NUR ---
Lying in bed with eyes closed. HOB elevated 45 degrees. Opens eyes when name called out. Denies pain or any concerns. Bipap still connected. Patient denies any further needs.
[2018-12-31 04:23] VITALS: BP 108/64; PULSE 74; TEMP 97.9
--- NOTE | 2018-12-31 06:32 | NUR ---
Lying in bed with eyes closed. Eyes open when name called out. Patient takes medications with water and also has ice chips. Bipap reapplied. Patient denies any further needs or concerns.
[2018-12-31 07:21] VITALS: BP 126/75; PULSE 92; TEMP 98.7
--- NOTE | 2018-12-31 10:10 | NUR ---
Client was sleeping.
--- NOTE | 2018-12-31 12:09 | NUR ---
Plan:Return home independently. Assess:Patient reports that he resides locally and uses bypap and 02 at home with 2 liters. Patient reports that his EMR contact is Danette Chowdary . Denies having a DPOA and is working on one. Patient reports that he is able to drive. Patient reports that he has a pace maker and heart loop..Rx obtianed at [facility]. PCP is Ihs Owusu with no upca. Action: Patient denies any additional concerns.
[2018-12-31 12:35] VITALS: BP 100/60; PULSE 87; TEMP 97.9
[2018-12-31 16:00] VITALS: BP 112/69; PULSE 86; TEMP 97.2
--- NOTE | 2018-12-31 18:00 | NUR ---
Alert. Required bipap most of day. RT treatments given. Occasional cough. States not coughing up much sputum. Diuresed well after Lasix.
--- NOTE | 2018-12-31 19:50 | NUR ---
PT SITTING UP IN BED WITH OXYMASK ON O2 RUNNING 5L, FRIEND/NEIGHBOR SITTING AT BEDSIDE. PT IN A JOVIAL MOOD. RT IN ROOM GIVING A BREATHING TREATMENT. PT IS COUGHING BUT UNABLE TO EXPECTORATE. ASSESSMENT COMPLETE, PT DENIES ANY OTHER NEEDS AT THIS TIME.
[2018-12-31 21:09] VITALS: BP 116/77; PULSE 88; TEMP 97.8
[2019-01-01 00:13] VITALS: BP 112/69; PULSE 84; TEMP 98
--- NOTE | 2019-01-01 01:01 | NUR ---
Pt asleep with bipap on. No concerns at this time. Call light within reach.
[2019-01-01 04:15] VITALS: BP 112/69; PULSE 94; TEMP 97.9
[2019-01-01 06:16] LABS: BILIRUBIN,TOTAL 0.6 mg/dL (0.0-1.0); CALCIUM 8.7 mg/dL (8.4-10.2); CREATININE, serum 2.47 (0.66-1.25); POTASSIUM 4.2 mmol/L (3.4-5.0); TOTAL PROTEIN 6.5 gm/dL (6.4-8.2)
--- NOTE | 2019-01-01 07:40 | NUR ---
Report given to Hipolito. Pt currently has 5L on NC, RT will replace the bipap shortly. Pt denies any pain or discomfort at this time. No other concerns.
[2019-01-01 07:57] VITALS: BP 119/76; PULSE 88; TEMP 97.7
[2019-01-01 11:22] VITALS: BP 113/70; PULSE 88; TEMP 97.7
--- NOTE | 2019-01-01 11:50 | NUR ---
Assessment completed, alert/oriented, vital signs stable, DrHerl has been by and we have made patient DNI by his request, advancing diet to ADA, decreasing IVf, giving dose of IV lasix, changed solu-medrol to Prednisone, lungs CTA/ no resp. difficulty noted, heart RRR/SR on tele, patient denies other needs
[2019-01-01 16:00] VITALS: BP 120/77; PULSE 99; TEMP 97.9
--- NOTE | 2019-01-01 19:40 | NUR ---
PT LAYING IN BED. FRIEND ESE AT BEDSIDE. ASSESSMENT COMPLETE. PT VOICES NO CONCERNS OR QUESTIONS AT THIS TIME. CALL LIGHT AND PERSONAL ITEMS WITHIN REACH.
[2019-01-01 19:54] VITALS: BP 123/72; PULSE 95; TEMP 97.5
[2019-01-02] VITALS (7 sets, daily range): BP systolic 111–130; BP diastolic 67–77; PULSE 73–100; TEMP 97.1–98.1
--- NOTE | 2019-01-02 08:57 | NUR ---
Pt assessment complete. Pt just finished with shower. He is A/O x3. Pt's breathing is even and unlabored on 5L O2 via NC, he does report SOB at rest and on exertion. Pt denies pain. No N/V. Pt to remain NPO for EGD. POC discussed with pt who verbalizes understanding. No needs at this time. Call light within reach.
[2019-01-02 10:50] LABS: ALBUMIN 3.2 gm/dL (3.5-5.0); BILIRUBIN,TOTAL 0.6 mg/dL (0.0-1.0); CALCIUM 8.6 mg/dL (8.4-10.2); CREATININE, serum 2.78 (0.66-1.25); POTASSIUM 4.5 mmol/L (3.4-5.0); TOTAL PROTEIN 6.9 gm/dL (6.4-8.2)
--- NOTE | 2019-01-02 12:44 | NUR ---
Pt reporting several episodes of diarrhea requesting Immodium. Awaiting Dr. Munoz to see patient. POC discussed with patient who verbalizes understanding. No needs at this time.
--- NOTE | 2019-01-02 18:27 | NUR ---
Pt rested through the afternoon. Continued to be hypoxic on 4-5L, placed on bipap later today. Unproductive cough present. POC discussed with patient who verbalizes understanding. Call light within reach.
--- NOTE | 2019-01-02 19:09 | NUR ---
This nurse spoke with Dr. Munoz who ordered to cancel patient's EGD and plan for Bronchoscopy on Wednesday. Patient made aware of this.
--- NOTE | 2019-01-02 21:00 | NUR ---
Patient assessed at this time. Alert and oriented x 4, and able to make needs known. Denies having pain and discomfort at this time. Peripheral IV to right hand, NS running at 75 ml/hr. Site is without redness, warmth, swelling, and pain. Does report SOB and dyspnea at rest. Respirations shallow and labored. On oxygen at 5 L/min via NC. LS CTA upper, diminished lower. Frequent dry, non-productive cough. HRR. Denies chest pain and discomfort. Cap refill < 3 sec. Non-tenting skin turgor. BSAx4. Abdomen soft and non-tender. Complained of diarrhea. Given PRN medication for diarrhea. No edema noted. Resting in bed visiting with visitor at this time. Denies having any questions, needs, or concerns at this time. Call light is within reach.
[2019-01-03 04:02] VITALS: BP 112/75; PULSE 81; TEMP 97.8
--- NOTE | 2019-01-03 05:25 | NUR ---
Patient has been resting in bed with eyes closed most of this shift. Has denied having pain and discomfort. Has been wearing BIPAP. Voices no questions, needs, or concerns at this time. Call light is within reach.
[2019-01-03 07:02] VITALS: BP 136/80; PULSE 100; TEMP 97.6
[2019-01-03 08:15] LABS: ALBUMIN 2.9 gm/dL (3.5-5.0); BILIRUBIN,TOTAL 0.4 mg/dL (0.0-1.0); CALCIUM 8.3 mg/dL (8.4-10.2); CREATININE, serum 2.29 (0.66-1.25); POTASSIUM 4.1 mmol/L (3.4-5.0); TOTAL PROTEIN 6.3 gm/dL (6.4-8.2)
--- NOTE | 2019-01-03 09:38 | NUR ---
Patient appears comfortable, laying in bed. Denies SOB, nausea or vomiting. C/O pain to left 2nd toe, pain rate "12"/10 upon touch. Medication applied with kerlix bandage. Patient verbalized relief. 4L O2 via NC. Call light within reach.
--- NOTE | 2019-01-03 09:45 | NUR ---
0700- Pt assessment as charted dyspnea on rest. Pt denies complaints of pain. Pt SPO2 @ 94% on 5L/NC. Breath sounds coarse w/ wheezes. IV infusing NS@75ml/hr to right hand IV site. Pt voices o acute concerns at this time.
[2019-01-03 10:19] LABS: INR 1.4 (0.8-3.0); PROTHROMBIN TIME 16.1 SECONDS (9.7-12.8)
[2019-01-03 11:02] VITALS: BP 132/81; PULSE 96
--- NOTE | 2019-01-03 13:07 | NUR ---
WORE BIPAP ALL NIGHT, THIS AM PATIENT STATES HE FEELS GOOD ND RESTED.
[2019-01-03 16:12] VITALS: BP 114/69; PULSE 72; TEMP 96.4
--- NOTE | 2019-01-03 16:36 | NUR ---
SW met with the patient to review discharge plan and to complete the Re-Admission Interview. The patient recently discharged from the hospital, 12/08, and returned home with no services. The patient reports that he has been back and forth from his home to his PCP office and hospital. He states that he just has not been getting better. The patient reports that he did follow up with his PCP, Dr. Munoz, before being re-admitted. He states that he did get his prescriptions filled and took them as prescribed. The patient is to have a fiberoptic bronchoscopy tomorrow morning. SW then reviewed the patient's discharge plan and discussed home health services. The patient plans to return home upon discharge. He states that he is not interested in any home health at this time. No other additional needs at this time, but SW to continue to follow.
--- NOTE | 2019-01-03 19:08 | NUR ---
Patient resting comfortbly in bed without complaints of pain or discomfort. No SOB. On 4L O2 via NC. Eating well. Medications administered without complaints. Pt understands NPO after midnight tonight in preparation for procedure in the morning. Needs met. Call light within reach.
[2019-01-03 19:35] VITALS: BP 120/73; PULSE 77; TEMP 97.4
--- NOTE | 2019-01-03 21:00 | NUR ---
Patient assessed at this time. Alert and oriented x 4, and able to make needs known. Denies having pain and discomfort at this time. NS running at 30 ml/hr to peripheral IV to right hand. Site is without redness, warmth, swelling, and pain. Reports SOB and dyspnea continues, and does not seem to be any better. Frequent harsh, dry cough. Unable to produce any sputum. LS coarse crackles throughout. On oxygen at 5 L/min via NC, and wears BIPAP at night. HRR. Capillary refill less than 3 seconds. Non-tenting skin turgor. BSAx4. Abdomen soft and non-tender. No edema. Voices no questions, needs, or concerns at this time. Aware of scheduled bronchoscopy for tomorrow, and that he can not eat or drink anything after midnight. Resting in bed with call light within reach.
[2019-01-03 23:51] VITALS: BP 104/62; PULSE 73
[2019-01-04] VITALS (13 sets, daily range): BP systolic 105–1133; BP diastolic 63–99; PULSE 73–98; TEMP 97.2–98.3
--- NOTE | 2019-01-04 06:23 | NUR ---
Patient has been NPO since midnight for bronchoscopy scheduled today. Voices no questions, needs, or concerns at this time time. Wearing BIPAP.
--- NOTE | 2019-01-04 06:58 | NUR ---
Pt down to Bronchoscopy at this time.
--- NOTE | 2019-01-04 08:30 | NUR ---
0650 Pt went to bronchoscopy. 0800 pt returns to room from procedure. Pt assessment as charted. Pt denies complaints of pain or shortness of breath. Breath sounds coarse. IV to right hand, no redness or edema. Pt voice no concerns at this time.
--- NOTE | 2019-01-04 08:30 | NUR ---
Pt returned from Bronchoscopy at 0800. Pt sitting comfortably in bed. Oxymask placed with 4LO2. Pt c/o throat discomfort from procedure. Sips of water given to patient without complaints or aspiration. Oral meds given without issue. Ordered breakfast tray for pt. Denies SOB or pain. Needs met. Call light within reach.
--- NOTE | 2019-01-04 18:34 | NUR ---
Patient sitting up in bed. Denies SOB or pain. On 4LO2 via NC, SpO2 95%. Pt complains of throat discomfort from bronscopy procedure this morning. Left message with Dr Menjivar requesting medication for relief. Eating well. Medications given without issue. Questions answered. Needs met.
--- NOTE | 2019-01-04 20:30 | NUR ---
Patient assessed at this time. Alert and oriented x 4, and able to make needs known. Denies having pain and discomfort at this time. NS running at 30 ml/hr to peripheral IV to left hand. Site is without redness, warmth, swelling, and pain. States that SOB and dyspnea has gotten better. Currently on oxygen at 4.5 L/min via NC. LS coarse crackles throughout. Respirations even and unlabored. Moist cough, unable to produce sputum. HRR. Capillary refill less than 3 seconds. Non-tenting skin turgor. BSAx4. Abdomen soft and non-tender. No edema. Voices no questions, needs, or concerns at this time. Call light is within reach.
[2019-01-05 04:04] VITALS: BP 128/81; PULSE 78; TEMP 97.2
--- NOTE | 2019-01-05 05:29 | NUR ---
Patient has been resting in bed with call light within reach. Has been wearing BIPAP. Voices no questions, needs, or concerns.
[2019-01-05 07:06] LABS: ALBUMIN 3.2 gm/dL (3.5-5.0); BILIRUBIN,TOTAL 0.7 mg/dL (0.0-1.0); CALCIUM 8.4 mg/dL (8.4-10.2); CREATININE, serum 2.3 (0.66-1.25); POTASSIUM 4.4 mmol/L (3.4-5.0); TOTAL PROTEIN 6.9 gm/dL (6.4-8.2)
[2019-01-05 07:40] VITALS: BP 128/74; PULSE 80; TEMP 97.6
--- NOTE | 2019-01-05 08:43 | NUR ---
Patient sitting up on edge of bed eating breakfast. Denies SOB or pain. Patient does complain of discomfort to throat from bronchoscopy procedure yesterday. This nurse left a message with Dr Munoz's office requesting medication to relief throat discomfort. On 4.5L O2 via NC. SpO2 98%. student support services director administered medications. Needs met. Call light within reach.
--- NOTE | 2019-01-05 08:59 | NUR ---
Reported on from primary nurse ABDIAZIZ Leal.Pt laying in bed with eyes with eyes open. No signs of distress. Call light left within reach.
[2019-01-05 11:45] VITALS: BP 124/70; PULSE 86; TEMP 97.7
--- NOTE | 2019-01-05 13:49 | NUR ---
Primary nurse was assisted with [phone] patient care by [employer] [employer] student Vivien Moeller and [employer] [facility] [employer] instructor Laury Craven RN-.
[2019-01-05 15:34] VITALS: BP 137/87; PULSE 78; TEMP 98
--- NOTE | 2019-01-05 18:37 | NUR ---
Pt sitting comfortably at the edge of bed eating dinner. Insulin administered prior to eating dinner. Denies SOB, dyspnea, and pain. C/O throat discomfort. PRN Tylenol given as requested by patient with relief. Pt c/o diarrhea. PRN Lomotil given as requested by patient. On 4L O2 via NC. Bipap PRN. Medications administered as scheduled and without issue. Needs met. personal items and call light within reach.
--- NOTE | 2019-01-05 19:10 | NUR ---
REPORT RECEIVED FROM ABDIAZIZ MAYNARD; CARE OF PT ASSUMED AT THIS TIME. BEDSIDE ROUNDS COMPLETED, PT DENIES NEEDS AT THIS TIME. CALL LIGHT WITHIN REACH.
[2019-01-05 21:05] VITALS: BP 128/71; PULSE 79; TEMP 97.8
--- NOTE | 2019-01-05 22:00 | NUR ---
PT ALERT, OX4, COOPERATIVE. PT WEARING O2 AT 4L PER NC AT THIS TIME. WEARS BIPAP AT NIGHT. PT REPORTS HIS NORMAL IS 2-3L AT HOME. DENIES SOB AT REST, REPORTS VERY LITTLE DYSPNEA WITH EXERTION, STATES THIS IS HIS NORM. LS COARSE WITH SOME FAINT EXP WHEEZES NOTED TO UPPER LOBES. PT DENIES COUGH. HR REG, NO EDEMA NOTED. PT REPORTS HAVING SOME LOOSE STOOLS TODAY, STATES THOSE HAVE SLOWED DOWN THIS EVENING AFTER TAKING LOMOTIL. DENIES ANY ISSUES URINATING, REPORTS FREQUENCY D/T DIURETICS. BS 303 THIS EVENING AND PT IS RECIEVING INSULIN PER ORDERS. PT DENIES ANY OTHER ISSUES, NEEDS. CALL LIGHT WITHIN REACH.
[2019-01-06 00:49] VITALS: BP 124/70; PULSE 72; TEMP 98.4
[2019-01-06 04:12] VITALS: BP 128/69; PULSE 74; TEMP 97.9
--- NOTE | 2019-01-06 07:37 | NUR ---
PT HAS RESTED WELL THROUGH THE NIGHT WITHOUT ANY ISSUES. WEARS BIPAP AT NIGHT, O2 AT 4L DURING THE DAY. PT AWAKE AND APPROPRIATE THIS AM. DENIES NEEDS. REPORT GIVEN TO ABDIAZIZ MORALES.
[2019-01-06 09:07] VITALS: BP 128/78; PULSE 60; TEMP 97.8
[2019-01-06 11:53] VITALS: BP 133/80; PULSE 87; TEMP 97.5
--- NOTE | 2019-01-06 16:39 | NUR ---
Pull Over met with the patient to discuss need for Bi-Pap upon discharge which is to occur tomorrow. RANDEE presented patient choice form and patient chose [facility]. Patient understood the form and provided signature. RANDEE placed original in chart and provided copy to patient. RANDEE faxed face sheet, sleep study results from Dr. Munoz, and recent progress notes to [facility]. RANDEE contacted [facility] and was informed by Ashli that referral would need to be reviewed by Respitory Therapist Physical Instructor, who will not be back until Wednesday. [facility] advised they can deliver Bi-Pap once approved. RANDEE contacted Dr. Munoz's office and spoke with radiology receptionist who advised Dr. Munoz had left for the day. RANDEE informed radiology receptionist that Bi-Pap could not be delivered until next week. RANDEE spoke with RNGladys to report the above information. RANDEE spoke with patient to provide update and patient expressed understanding. SW to continue to follow.
--- NOTE | 2019-01-06 19:11 | NUR ---
PT HAD NO ISSUES OR CONSERNS VOICED THIS SHIFT. S/S WORKING ON GETTING PT CPAP, S/S STATED THEY PUT IN A NOTE ABOUT THE CPAP STATUS.
[2019-01-06 21:00] VITALS: BP 127/72; PULSE 79; TEMP 97.3
[2019-01-07 04:39] VITALS: BP 128/67; PULSE 66; TEMP 97.4
[2019-01-07 07:32] LABS: ALBUMIN 3.2 gm/dL (3.5-5.0); BILIRUBIN,TOTAL 0.3 mg/dL (0.0-1.0); CALCIUM 9.2 mg/dL (8.4-10.2); CREATININE, serum 2.05 (0.66-1.25); POTASSIUM 4.2 mmol/L (3.4-5.0); TOTAL PROTEIN 6.9 gm/dL (6.4-8.2)
[2019-01-07 07:59] VITALS: BP 145/77; PULSE 82; TEMP 97.5
--- NOTE | 2019-01-07 08:03 | NUR ---
Pt slept well thru the night. Wore bi-pap all night. Up this AM for po meds. Bi-pap off and ambulates to BR. Denies any c/o. Report given to ABDIAZIZ Graham.
--- NOTE | 2019-01-07 11:12 | NUR ---
DISCHARGE PAPERWORK GIVEN TO PT, SIGNATURE OBTIANED. NO ISSUES OR CONSERNS VOICED. VOICED HE WAS READY TO GO
== END 2019-01-07 11:14 | disposition home or self-care (01) | DRG 177 ==
LOC: MEDICAL 10:19
PROVIDERS: Internal Medicine Pulmonary Disease; ADMIT Family Medicine
PROC: 0B948ZZ Drainage of Right Upper Lobe Bronchus, Via Natural or Artificial Opening Endoscopic (ICD-10-PCS; 2019-01-04)
PROC: 0B9J8ZZ Drainage of Left Lower Lung Lobe, Via Natural or Artificial Opening Endoscopic (ICD-10-PCS; principal; 2019-01-04 07:00)
DX: J69.0 Pneumonitis due to inhalation of food and vomit (principal); I50.43 Acute on chronic combined systolic (congestive) and diastolic (congestive) heart failure; J96.21 Acute and chronic respiratory failure with hypoxia; I42.9 Cardiomyopathy, unspecified; N17.9 Acute kidney failure, unspecified; I13.0 Hypertensive heart and chronic kidney disease with heart failure and stage 1 through stage 4 chronic kidney disease, or unspecified chronic kidney disease; K22.8 Other specified diseases of esophagus; R13.10 Dysphagia, unspecified; I48.91 Unspecified atrial fibrillation; J30.2 Other seasonal allergic rhinitis; N18.9 Chronic kidney disease, unspecified; G47.31 Primary central sleep apnea; I25.10 Atherosclerotic heart disease of native coronary artery without angina pectoris; E11.9 Type 2 diabetes mellitus without complications; I27.20 Pulmonary hypertension, unspecified; I50.9 Heart failure, unspecified; Z79.4 Long term (current) use of insulin; Z79.82 Long term (current) use of aspirin; Z95.810 Presence of automatic (implantable) cardiac defibrillator; Z87.891 Personal history of nicotine dependence; Z88.2 Allergy status to sulfonamides
CPT/HCPCS: A9284; J1815; J1940; J2543; J2704; J2920; J7030; J7512

== ENCOUNTER → 2019-02-01 | Outpatient (CLI) | payer MEDICARE, OTHER ==
[~2019-02-01] MED LIST changes: +PRILOSEC 20MG20 MG PO
[2019-02-01 11:38] LABS: ALBUMIN 3.6 gm/dL (3.5-5.0); CREATININE, serum 2.75 (0.66-1.25); POTASSIUM 4.8 mmol/L (3.4-5.0); TOTAL PROTEIN 7.2 gm/dL (6.4-8.2)
== END ==
LOC: COL.LAB 10:32
PROVIDERS: Family Medicine
DX: I50.42 Chronic combined systolic (congestive) and diastolic (congestive) heart failure (principal)

== ENCOUNTER 2019-02-04 08:30 | Outpatient (RCR) | payer MEDICARE, OTHER ==
[2019-02-02 08:23] VITALS: BP 113/74; PULSE 88; TEMP 97.2
[2019-02-03 09:42] VITALS: BP 120/78; PULSE 76; TEMP 97
[~2019-02-04] VITALS: Ht 175.3 cm; Wt 81.0 kg
[2019-02-04 08:17] VITALS: BP 109/65; PULSE 92; TEMP 97.9
== END 2019-02-04 09:19 | disposition home or self-care (01) ==
LOC: EUO 08:30
DX: I50.43 Acute on chronic combined systolic (congestive) and diastolic (congestive) heart failure (principal); Z79.899 Other long term (current) drug therapy
CPT/HCPCS: J1940

== ENCOUNTER 2019-02-09 08:09 | Outpatient (RCR) | payer MEDICARE, OTHER ==
[2019-02-08 11:30] VITALS: BP 99/63; PULSE 83; TEMP 97.5
[~2019-02-09] VITALS: Ht 175.3 cm; Wt 84.2 kg
[2019-02-10 11:01] VITALS: BP 94/62; PULSE 77; TEMP 97.1
== END 2019-02-10 12:31 | disposition home or self-care (01) ==
LOC: EUO 02-10 11:00
DX: I50.9 Heart failure, unspecified (principal)
CPT/HCPCS: J1940

== ENCOUNTER → 2019-02-13 | Outpatient (CLI) | payer MEDICARE, OTHER ==
[2019-02-13 14:30] LABS: ALBUMIN 3.5 gm/dL (3.5-5.0); BILIRUBIN,TOTAL 0.9 mg/dL (0.0-1.0); CALCIUM 8.7 mg/dL (8.4-10.2); CREATININE, serum 3.29 (0.66-1.25); POTASSIUM 4.1 mmol/L (3.4-5.0); TOTAL PROTEIN 7.2 gm/dL (6.4-8.2)
== END ==
LOC: COL.LAB 13:44
PROVIDERS: Family Medicine
DX: I50.82 Biventricular heart failure (principal)

== ENCOUNTER → 2019-03-09 | Outpatient (CLI) | payer MEDICARE, OTHER | LOC: COL.RAD 07:03 | DX: M46.1 Sacroiliitis, not elsewhere classified (principal) | CPT/HCPCS: G0260; J3301 ==

== ENCOUNTER → 2019-03-30 | Outpatient (CLI) | payer MEDICARE, OTHER ==
[2019-03-30 12:30] LABS: ALBUMIN 3.7 gm/dL (3.5-5.0); BILIRUBIN,TOTAL 1.5 mg/dL (0.0-1.0); CREATININE, serum 1.93 (0.66-1.25); POTASSIUM 5.2 mmol/L (3.4-5.0); TOTAL PROTEIN 7.2 gm/dL (6.4-8.2)
== END ==
LOC: COL.LAB 11:46
PROVIDERS: Family Medicine
DX: I50.9 Heart failure, unspecified (principal)

== ENCOUNTER 2019-04-04 13:57 | Outpatient (RCR) | payer MEDICARE, OTHER ==
[~2019-04-04] VITALS: Ht 175.3 cm; Wt 80.4 kg
[~2019-04-04 13:57] MED LIST changes: -LASIX 100M100 MG/10 IV
[2019-04-04 14:48] VITALS: BP 108/68; PULSE 78; TEMP 97.6
--- NOTE | 2019-04-04 15:12 | NUR ---
Pt requested INT to be left in for tomorrow's injection.Site wrapped in Coban and gauze.Pt assisted to car.Reviewed intake and output and requested pt to keep tracck of I&O's.
[2019-04-05] MEDS ORDERED: LASIX 100M100 MG/10 IV (11:15)
--- NOTE | 2019-04-05 11:20 | NUR ---
Received report pt is admitted as inpatient today.
== END 2019-04-04 18:00 | disposition home or self-care (01) ==
LOC: EUO 13:57
DX: I50.9 Heart failure, unspecified (principal); Z79.899 Other long term (current) drug therapy
CPT/HCPCS: J1940

== ENCOUNTER → 2019-04-04 | Outpatient (CLI) | payer MEDICARE, OTHER ==
[~2019-04-04] MED LIST changes: +LASIX 100M100 MG/10 IV
[2019-04-04 08:51] LABS: ALBUMIN 3.8 gm/dL (3.5-5.0); BILIRUBIN,TOTAL 1.4 mg/dL (0.0-1.0); CALCIUM 9.2 mg/dL (8.4-10.2); POTASSIUM 3.8 mmol/L (3.4-5.0); TOTAL PROTEIN 7.2 gm/dL (6.4-8.2)
== END ==
LOC: COL.LAB 08:20
PROVIDERS: Family Medicine
DX: I50.9 Heart failure, unspecified (principal)

== ENCOUNTER 2019-04-05 10:27 | Inpatient (IN) | payer MEDICARE, OTHER ==
[~2019-04-05] VITALS: Ht 175.3 cm; Wt 81.4 kg
--- NOTE | 2019-04-05 11:00 | NUR ---
Pt arrived to room 307 at this time. Pt is A/O x4. He is up independently in the room, currently 94% on RA but patient requesting to wear 3L O2 via NC. Pt reports intermittent pain to BLE, radiating up the leg. Swelling present. IV in R Wrist in place from Express unit yesterday. Tele placed on patient. POC discussed with him, he verbalizes understanding. No needs at this time. Call light within reach.
[2019-04-05] MEDS ORDERED: LASIX 100M100 MG/10 IV (11:15)
[2019-04-05 11:44] LABS: BASO % 0.6 % (0.0-2.0); EOS # 0.2 (0.0-0.7); EOS % 2.5 % (0-4.0); GRAN # 5.3 (1.4-6.5); HEMATOCRIT 37.4 % (42.0-52.0); HEMOGLOBIN 12.4 g/dl (13.5-18.0); LYMPH # 1.1 (1.2-3.4); MEAN CELL VOLUME 94 fl (80.0-100.0); MEAN CORPUSCULAR HEMOGLOBIN 31 pg (27.0-31.0); MEAN CORPUSCULAR HGB CONC 33 g/dl (33.0-37.0); MEAN PLATELET VOLUME 12.2 fl (7.4-10.4); MONO # 0.5 (0.1-0.6); MONO % 6.5 % (1.7-9.3); PLATELET COUNT 118 K/mm3 (130-400); REDCELL DISTRIBUTION WIDTH-CV 20.4 % (11.5-14.5)
[2019-04-05 11:47] LABS: INR 1.1 (0.8-3.0); PROTHROMBIN TIME 13.2 SECONDS (9.7-12.8)
[2019-04-05 11:52] LABS: ALBUMIN 3.9 gm/dL (3.5-5.0); BILIRUBIN,TOTAL 1.7 mg/dL (0.0-1.0); CALCIUM 9.2 mg/dL (8.4-10.2); CREATININE, serum 2.2 (0.66-1.25); MAGNESIUM 1.9 mg/dL (1.6-2.3); PHOSPHOROUS 3.2 mg/dL (2.5-4.5); POTASSIUM 4.1 mmol/L (3.4-5.0); TOTAL PROTEIN 7.4 gm/dL (6.4-8.2)
[2019-04-05 12:29] LABS: TROPONIN-I 0.084 ng/mL (0.000-0.035)
[2019-04-05 12:36] VITALS: BP 121/71; PULSE 90; TEMP 97.7
[2019-04-05 15:24] VITALS: BP 111/93; PULSE 88; TEMP 97.5
[2019-04-05 15:41] LABS: COLLECTION METHOD CLEAN CATCH
[2019-04-05 15:48] LABS: PH 7 (5-8); SQUAMOUS EPITHELIAL 0-2 /hpf; URINE APPEARANCE Clear; URINE BACTERIA None Seen /hpf; URINE BILIRUBIN Negative (NEGATIVE); URINE BLOOD Negative (NEGATIVE); URINE COLOR Yellow; URINE GLUCOSE 1+ (NEGATIVE); URINE KETONE Negative (NEGATIVE); URINE LEUKOCYTE ESTERASE Negative (NEGATIVE); URINE NITRATE Negative (NEGATIVE); URINE PROTEIN(semi-quant) 2+ (NEGATIVE); URINE RBC 0-2 /hpf
[2019-04-05 16:21] LABS: URINE PROTEIN:CREAT RATIO 3.26 (0.00-0.14)
--- NOTE | 2019-04-05 18:35 | NUR ---
Pt rested well through the afternoon, continues to report pain to bilateral ankles, states Tylenol did not help with pain. Bumex drip infusing without issues. Pt aware of POC, will continue to monitor.
[2019-04-05 20:00] VITALS: BP 119/70; PULSE 91; TEMP 97.5
--- NOTE | 2019-04-05 20:00 | NUR ---
Received report from ABDIAZIZ Mcgarry. Assessment complete. Alert and oriented. On 3L via NC. Placed on bipap HS. IV to RW intact with meds infusing, dressing CDI. tele monitor in place, leads checked. c/o bilateral ankle pain that radiates up to legs that "comes and goes." Day shift administered 650mg Tylenol with no relief. Pt states Tramadol does not work for him. Per JackelynFELL CUTTER to administer morphine 1mg PRN q2hr. This was given with stated relieft from pt. Pt verbalized no other discomfort. Urinal at bedside. Needs met. Call light within reach.
[2019-04-06] VITALS: BP 117/63; PULSE 86; TEMP 97.7
[2019-04-06 00:20] LABS: CALCIUM 8.9 mg/dL (8.4-10.2); CREATININE, serum 2.14 (0.66-1.25); POTASSIUM 3.9 mmol/L (3.4-5.0)
[2019-04-06 00:36] LABS: TROPONIN-I 0.073 ng/mL (0.000-0.035)
[2019-04-06 03:50] VITALS: BP 117/71; PULSE 82; TEMP 97.5
--- NOTE | 2019-04-06 05:29 | NUR ---
Pt uneventful this shift. Had no complaints. On bipap while sleeping. Call light within reach.
[2019-04-06 06:48] LABS: BASO % 0.7 % (0.0-2.0); EOS # 0.2 (0.0-0.7); EOS % 3.5 % (0-4.0); GRAN # 4.2 (1.4-6.5); GRAN % 69.1 % (42.2-75.2); HEMOGLOBIN 11.4 g/dl (13.5-18.0); LYMPH # 1.1 (1.2-3.4); LYMPH % 18.7 % (20.0-51.0); MEAN CELL VOLUME 93 fl (80.0-100.0); MEAN CORPUSCULAR HEMOGLOBIN 31 pg (27.0-31.0); MEAN CORPUSCULAR HGB CONC 33 g/dl (33.0-37.0); MONO # 0.5 (0.1-0.6); MONO % 7.8 % (1.7-9.3); PLATELET COUNT 116 K/mm3 (130-400); RED BLOOD COUNT 3.73 M/mm3 (4.20-5.60); REDCELL DISTRIBUTION WIDTH-CV 20.2 % (11.5-14.5)
[2019-04-06 06:49] LABS: HEMATOCRIT 34.6 % (42.0-52.0)
--- NOTE | 2019-04-06 06:52 | NUR ---
Report given to ABDIAZIZ Mcgarry.
[2019-04-06 07:06] LABS: ALBUMIN 3.4 gm/dL (3.5-5.0); BILIRUBIN,TOTAL 1.4 mg/dL (0.0-1.0); CREATININE, serum 2.06 (0.66-1.25); MAGNESIUM 1.9 mg/dL (1.6-2.3); POTASSIUM 3.5 mmol/L (3.4-5.0); TOTAL PROTEIN 6.6 gm/dL (6.4-8.2)
[2019-04-06 07:53] VITALS: BP 129/71; PULSE 94; TEMP 97.5
--- NOTE | 2019-04-06 09:43 | NUR ---
Patient is alert and oriented x4. Patient ate 90% of breakfast. Physical therapist worked with him this morning. Patient was able to walk to the bathroom and brush his teeth with minimal retail sales assistant. Patient received Morphine for pain at 8. Pain was reassessed 30 minute after. nelson was still at 8 on bilateral knee and 10 on his ankles.
--- NOTE | 2019-04-06 10:21 | NUR ---
SW met with the patient to discuss discharge plan. The patient was living alone in [place]. He just sold his house and is in the process of moving to [place], [place] to transition into Assisted Living at [facility]. The patient states that his son, Bhavesh (ph#[phone]), will be here tomorrow night, along with four of his friends to pack up his belongings and bring them to [place]. He reports independence with ADLs and has a cane, walker, home oxygen, and bipap from [employer]. The patient's PCP is Dr. Joycelyn Munoz and he receives his medications at [facility]. The patient states that he will be switching his primary care to a nurse practitioner in [place], but could not recall her name at this time. The patient does not have advanced directives, but he states that he is in the process of revising and completing them. The patient states that he still needs to purchase his plane tickets to [place] and will plan to stay at a hotel here in [place] until his flight, upon discharge. SW to continue to follow.
[2019-04-06 11:21] VITALS: BP 113/68; PULSE 55; TEMP 97.6
--- NOTE | 2019-04-06 12:00 | NUR ---
Patient is out for dialysis. Her pre-dialysis weight is 69.2 KG.
--- NOTE | 2019-04-06 14:59 | NUR ---
Patient is in bed watching TV. He said his pain is at 7/10 but he does not want any pain medication at the moment. he is relaxed at the moment.
[2019-04-06 16:25] VITALS: BP 111/60; PULSE 86; TEMP 98.5
--- NOTE | 2019-04-06 18:45 | NUR ---
Patient is on bed eating. patient seem comfortable. call light and urinal in reach.
--- NOTE | 2019-04-06 19:24 | NUR ---
Recvd report from ABDIAZIZ Patton. Pt is laying in bed. Requests a bubbler for his O2 as it is irritating his nares. Gave pt a new urinal per request. Pt has no other complaints at this time. Call light within reach. No further concerns.
[2019-04-06 19:39] VITALS: BP 98/47; PULSE 87; TEMP 98
[2019-04-07] VITALS (13 sets, daily range): BP systolic 99–126; BP diastolic 65–84; PULSE 78–152; TEMP 97.6–98.5
[2019-04-07 06:21] LABS: BASO # 0.1 (0.0-0.2); BASO % 0.9 % (0.0-2.0); EOS # 0.4 (0.0-0.7); EOS % 6.2 % (0-4.0); GRAN # 4.5 (1.4-6.5); GRAN % 65.6 % (42.2-75.2); LYMPH # 1.4 (1.2-3.4); LYMPH % 19.6 % (20.0-51.0); MEAN CELL VOLUME 94 fl (80.0-100.0); MEAN CORPUSCULAR HEMOGLOBIN 31 pg (27.0-31.0); MEAN CORPUSCULAR HGB CONC 33 g/dl (33.0-37.0); MEAN PLATELET VOLUME 12.1 fl (7.4-10.4); MONO # 0.5 (0.1-0.6); MONO % 7.4 % (1.7-9.3); PLATELET COUNT 113 K/mm3 (130-400); RED BLOOD COUNT 3.84 M/mm3 (4.20-5.60); REDCELL DISTRIBUTION WIDTH-CV 20.5 % (11.5-14.5)
[2019-04-07 06:23] LABS: HEMATOCRIT 35.9 % (42.0-52.0)
[2019-04-07 06:31] LABS: CALCIUM 9.1 mg/dL (8.4-10.2); CREATININE, serum 1.89 (0.66-1.25); POTASSIUM 3.9 mmol/L (3.4-5.0)
--- NOTE | 2019-04-07 07:51 | NUR ---
PT HAD AN UNEVENTFUL EVENING. NO C/O PAIN OR DISCOMFORT THROUGHOUT THE NIGHT. PT DID HAVE A LOW WBG OF 57 AT 0620, ORANGE JUICE WAS GIVEN. AWAITING THE RECHECK. REPORT GIVEN TO ABDIAZIZ RODRIGUEZ AND ABDIAZIZ ALVARADO. NO FURTHER CONCERNS AT THIS TIME.
--- NOTE | 2019-04-07 08:45 | NUR ---
PT stating pain in bilateral lower ankles at a 8/10. Breath sounds clear in all layne. Bowel sounds present and active. Edema present in bilateral feet. Bilateral knee edema has gone down immensley. Pt active in care, asks many questions about medications and plans for discharge. I educated on different medications. No other needs at this time.
--- NOTE | 2019-04-07 18:45 | NUR ---
Recieved call of pt HR at 150 from ICU. I asked about pain and he revealed pain in his ankles at an 8/10. I administered morphine and pain later decreased to a 5/10. PA notified at 1615 and EKG performed. Physician ordered 5mg push of lopressor. BP and HR monitored every 5 minutes. HR did not go down to therapeutic level with first dose so second dose was ordered. After second dose of 5mg lopressor pt HR decreased to 78 and stayed there for 10 minutes before 5 minute BP and HR monitioring was d/c'd. EKG revealed v-paced rhythm which is normal for the pt. After this episode HR has stayed in 80's and no other notable event has occurred. pt continues to eat 100% of meals and appear with a rodding machine tender attitude.
--- NOTE | 2019-04-07 22:15 | NUR ---
TELEMETRY CALLED THIS RN, PT HAD A 10 BEAT RUN OF AFIB RVR. PT IS ASYMPTOMATIC. RT CALLED, THEY ARE AT BEDSIDE TO DO AN EKG. SHAHRAM NOTIFIED, AND STATED HE IS OK WITH THE SMALL RUNS, LONG IT IS NOT SUSTAINED. WILL CONTINUE TO KEEP A CLOSE WATCH. PT STATED HE "FEELS FINE AND THINKS IT MIGHT BE A MEDICATION HE IS TAKING THAT IS CAUSING THIS". PT IS CALM AND READY TO GO TO SLEEP. BIPAP PUT ON BY RT POST EKG, AND PT FELL ASLEEP QUICKLY. CALL LIGHT IS WITHIN REACH, NO FURTHER CONCERNS AT THIS TIME.
--- NOTE | 2019-04-07 23:17 | NUR ---
TREATMENT NOT GIVEN-PT HAVING ARRHYTHMIAS
[2019-04-08] VITALS (9 sets, daily range): BP systolic 80–131; BP diastolic 45–70; PULSE 79–99; TEMP 96–98.5
--- NOTE | 2019-04-08 02:23 | NUR ---
PT HAD TWO RUNS OF AFIB RVR, PT WAS ASYMPTOMATIC. SHAHRAM WAS NOTIFIED, AND STATED THAT HE IS OK WITH THE RUNS, HOWEVER IF THE AFIB BECOMES SUSTAINED TO LET HIM KNOW. PT IS SLEEPING WITH CPAP ON. NO FURTHER CONCERNS, CALL LIGHT WITHIN REACH.
[2019-04-08 07:06] LABS: BASO # 0.1 (0.0-0.2); BASO % 0.8 % (0.0-2.0); EOS # 0.5 (0.0-0.7); GRAN # 3.9 (1.4-6.5); GRAN % 62.2 % (42.2-75.2); HEMOGLOBIN 11.4 g/dl (13.5-18.0); LYMPH # 1.3 (1.2-3.4); LYMPH % 20.8 % (20.0-51.0); MEAN CELL VOLUME 93 fl (80.0-100.0); MEAN CORPUSCULAR HEMOGLOBIN 31 pg (27.0-31.0); MEAN CORPUSCULAR HGB CONC 33 g/dl (33.0-37.0); MEAN PLATELET VOLUME 11.8 fl (7.4-10.4); MONO # 0.5 (0.1-0.6); MONO % 7.9 % (1.7-9.3); PLATELET COUNT 106 K/mm3 (130-400); RED BLOOD COUNT 3.71 M/mm3 (4.20-5.60); REDCELL DISTRIBUTION WIDTH-CV 20.1 % (11.5-14.5)
[2019-04-08 07:09] LABS: HEMATOCRIT 34.6 % (42.0-52.0)
--- NOTE | 2019-04-08 07:22 | NUR ---
Report given to ABDIAZIZ Mcgarry. Transfer of care complete.
[2019-04-08 07:23] LABS: CALCIUM 8.7 mg/dL (8.4-10.2); CREATININE, serum 1.88 (0.66-1.25); POTASSIUM 4.1 mmol/L (3.4-5.0)
--- NOTE | 2019-04-08 09:13 | NUR ---
Pt assessment complete. Pt is sitting up in bed upon entry, he is A/O x4. His breathing is even and unlabored on RA. Pt currently reports pain 7/10 to bilateral ankles. Pt upset that he has not been given his Allopurinol during the stay, explanation given to patient. Pt in agreeance to try Portal. No further needs at this time. Call light within reach.
--- NOTE | 2019-04-08 18:01 | NUR ---
Pt had uneventful day. Pain better controlled to bilateral ankles today. No runs of Afib RVR reported by tele. No needs or concerns at this time. Call light within reach.
--- NOTE | 2019-04-08 20:40 | NUR ---
Shift assessment complete. Pt resting in bed, awake, a&o, cooperative c cares. Pt reports continued pain to BLE/feet; PRN pain manager med surg per pt req. Pt denies any other c/o at this time. INT patent. Tele in place. Pt denies further needs. Call light in reach, will continue to monitor.
[2019-04-09 03:04] VITALS: BP 105/57; PULSE 86; TEMP 97.4
[2019-04-09 07:40] VITALS: BP 123/73; PULSE 94; TEMP 97.4
--- NOTE | 2019-04-09 07:49 | NUR ---
Pt assessment complete. Pt is sitting up in bed just finished a breathing treatment. He is A/O x4. Pt pain controlled at this time to bilateral ankles. Pt denies any further needs or concerns this am. No needs at this time. Call light within reach.
[2019-04-09 07:53] LABS: HEMOGLOBIN 10.9 g/dl (13.5-18.0); MEAN CELL VOLUME 94 fl (80.0-100.0); MEAN CORPUSCULAR HEMOGLOBIN 31 pg (27.0-31.0); MEAN CORPUSCULAR HGB CONC 33 g/dl (33.0-37.0); MEAN PLATELET VOLUME 12.3 fl (7.4-10.4); PLATELET COUNT 114 K/mm3 (130-400); RED BLOOD COUNT 3.56 M/mm3 (4.20-5.60)
[2019-04-09 08:05] LABS: ALBUMIN 3.2 gm/dL (3.5-5.0); CALCIUM 8.6 mg/dL (8.4-10.2); CREATININE, serum 1.96 (0.66-1.25); POTASSIUM 4.9 mmol/L (3.4-5.0); TOTAL PROTEIN 6.3 gm/dL (6.4-8.2)
[2019-04-09 08:10] LABS: HEMATOCRIT 33.3 % (42.0-52.0)
[2019-04-09 12:12] VITALS: BP 120/68; PULSE 94; TEMP 97.8
[2019-04-09 15:58] VITALS: BP 116/68; PULSE 93; TEMP 97.4
--- NOTE | 2019-04-09 18:52 | NUR ---
Pt had uneventful day. Wore oxygen intermittently. Continues to report pain to bilateral ankles, plan to treat with [facility] discussed with patient. Blood sugars and insulin treatment discussed with patient. Pt has juice and crackers at bedside in incidence of low sugar, pt in agreeance to notify staff if feeling that blood sugar is low. Pt has no needs at this time. Report given to ABDIAZIZ Anderson.
[2019-04-09 20:00] VITALS: BP 118/60; PULSE 95; TEMP 98.3
--- NOTE | 2019-04-09 20:17 | NUR ---
Shift assessment complete. Pt resting in bed, awake, a&o, coopearative c cares. Pt reports continued pain to bilat feet/ankles, denies need for intervention as he recently had pain med. Pt denies any other c/o. INT patent. Tele in place. O2 per NC. Pt denies further needs at this time. Call light in reach, will continue to monitor.
[2019-04-10] VITALS: BP 112/72; PULSE 76; TEMP 97.9
[2019-04-10 03:39] VITALS: BP 123/68; PULSE 91; TEMP 97.6
[2019-04-10 05:59] LABS: BASO % 0.2 % (0.0-2.0); EOS % 0.4 % (0-4.0); GRAN % 82.5 % (42.2-75.2); HEMOGLOBIN 11.4 g/dl (13.5-18.0); LYMPH # 0.9 (1.2-3.4); LYMPH % 9.7 % (20.0-51.0); MEAN CELL VOLUME 93 fl (80.0-100.0); MEAN CORPUSCULAR HEMOGLOBIN 31 pg (27.0-31.0); MEAN CORPUSCULAR HGB CONC 34 g/dl (33.0-37.0); MEAN PLATELET VOLUME 11.9 fl (7.4-10.4); MONO # 0.7 (0.1-0.6); MONO % 6.7 % (1.7-9.3); PLATELET COUNT 123 K/mm3 (130-400); RED BLOOD COUNT 3.63 M/mm3 (4.20-5.60); REDCELL DISTRIBUTION WIDTH-CV 20.4 % (11.5-14.5)
[2019-04-10 06:08] LABS: HEMATOCRIT 33.9 % (42.0-52.0)
[2019-04-10 06:13] LABS: ALBUMIN 3.4 gm/dL (3.5-5.0); BILIRUBIN,TOTAL 1.5 mg/dL (0.0-1.0); CALCIUM 9.1 mg/dL (8.4-10.2); CREATININE, serum 2.23 (0.66-1.25); POTASSIUM 4.6 mmol/L (3.4-5.0); TOTAL PROTEIN 6.6 gm/dL (6.4-8.2)
[2019-04-10 07:53] VITALS: BP 117/64; PULSE 93; TEMP 98.6
[2019-04-10] MEDS ORDERED: COREG 3.123.125 MG/T PO (11:30)
[2019-04-10 11:31] VITALS: BP 105/65; PULSE 91; TEMP 98
[2019-04-10] MEDS ORDERED: BUMEX2 MG PO (11:31)
[2019-04-10] MEDS ORDERED: ROXICODONE 55 MG/TAB PO (11:41)
--- NOTE | 2019-04-10 11:48 | NUR ---
The patient is to discharge today, 04/10. SW met with the patient and presented and explained the IM form to the patient. The patient verbalized understanding, signed, and he was provided a copy. The patient states that he is able to stay at his home tonight and that he will fly out to [place] tomorrow, 04/11. No additional needs at this time.
--- NOTE | 2019-04-10 13:01 | NUR ---
Patient was discharge with information about new medications, with written presription for oxycodone for pain. patient was also reminded of his upcoming appointment tomorrow in [place]. Patient understand his discharge instruction. IV and tele removed from patient hand and body.
== END 2019-04-10 13:10 | disposition home or self-care (01) | DRG 291 ==
LOC: MEDICAL 10:27
PROVIDERS: Nurse Practitioner Family; Physician Assistant; Student in an Organized Health Care Education/Training Program; ADMIT Hospitalist
DX: I13.0 Hypertensive heart and chronic kidney disease with heart failure and stage 1 through stage 4 chronic kidney disease, or unspecified chronic kidney disease (principal); I50.23 Acute on chronic systolic (congestive) heart failure; J96.10 Chronic respiratory failure, unspecified whether with hypoxia or hypercapnia; N17.9 Acute kidney failure, unspecified; E11.22 Type 2 diabetes mellitus with diabetic chronic kidney disease; I25.10 Atherosclerotic heart disease of native coronary artery without angina pectoris; K76.1 Chronic passive congestion of liver; N18.3 Chronic kidney disease, stage 3 (moderate); E11.649 Type 2 diabetes mellitus with hypoglycemia without coma; E78.5 Hyperlipidemia, unspecified; M25.572 Pain in left ankle and joints of left foot; M25.571 Pain in right ankle and joints of right foot; M10.9 Gout, unspecified; E11.42 Type 2 diabetes mellitus with diabetic polyneuropathy; E03.9 Hypothyroidism, unspecified; G47.33 Obstructive sleep apnea (adult) (pediatric); Z99.81 Dependence on supplemental oxygen; Z95.0 Presence of cardiac pacemaker; Z79.82 Long term (current) use of aspirin; Z79.4 Long term (current) use of insulin; Z87.891 Personal history of nicotine dependence; Z88.8 Allergy status to other drugs, medicaments and biological substances; Z88.2 Allergy status to sulfonamides; Z95.1 Presence of aortocoronary bypass graft
CPT/HCPCS: 99222-AI; 99231-AI; 99232-AI; 99233-AI; J1644; J1815; J1940; J2270; J7512